=== PATIENT | male | born 1980 | race Caucasian/White ===

== ENCOUNTER 2022-01-07 23:49 | Emergency (ER) | payer MEDICAID ==
[~2022-01-07] VITALS: Ht 182.9 cm; Wt 86.3 kg
[~2022-01-07 23:49] MED LIST: IBUP-1984 PO
[2022-01-07 23:53] VITALS: BP 127/81
== END 2022-01-08 07:39 | disposition left against medical advice (07) ==
LOC: ER 23:50
DX: R10.9 Unspecified abdominal pain (principal); Z53.21 Procedure and treatment not carried out due to patient leaving prior to being seen by health care provider

== ENCOUNTER 2024-02-16 18:35 | Emergency (ER) | payer MEDICAID ==
[~2024-02-16] VITALS: Ht 182.9 cm; Wt 85.9 kg
[2024-02-16 18:35] VITALS: BP 120/79; PULSE 78; RESP 16; TEMP 99.1; O2SAT 96
[2024-02-16] MEDS ORDERED: SULF1TAB49 PO (19:35)
[2024-02-16] MEDS ORDERED: CEPH-585 PO (19:35)
== END 2024-02-16 19:49 | disposition home or self-care (01) ==
LOC: ER 18:35
DX: L02.212 Cutaneous abscess of back [any part, except buttock and flank] (principal); Z79.2 Long term (current) use of antibiotics
CPT/HCPCS: 99283

== ENCOUNTER 2025-02-07 08:30 | Emergency (ER) | payer MEDICAID ==
[~2025-02-07] VITALS: Ht 182.9 cm; Wt 89.0 kg
[~2025-02-07 08:30] MED LIST changes: +CEPH-585 PO
[2025-02-07 08:39] VITALS: BP 138/93; PULSE 90; RESP 18; O2SAT 96
[2025-02-07 09:29] LABS: STREP A SCREEN POSITIVE (Neg)
--- NOTE | 2025-02-07 10:00 | Physician Documentation ---
History of Present Illness ~ Chief Complaint: Sore Throat Stated Complaint: COLD SYMPTOMS Time Seen by MD: 08:52 Primary Medical Doctor: NONE HPI Patient is seen today with complaints of sore throat and fever and chills body aches for the last couple of days. Patient denies any cough or nasal congestion or chest pain or shortness of breath or abdominal pain or nausea, vomiting, diarrhea. Patient has no other concern or complaint at this time. He denies any other sick contacts at home. Medication Reconciliation Allergies: Coded Allergies: No Known Allergies (Unverified , 02/07/25) Scheduled Cephalexin*Monohydrate* (Keflex*), 1 CAP PO QID Ibuprofen* (Motrin*), Unknown Dose PO Q8H, (Reported) Past Medical History Past Medical History: No Pertinent History Past Surgical History: no surgical history Alcohol Use: Occasionally Drug Use: none Lives with: Other Lives In: Home Occupation: employed Review of Systems Constitutional: Denies: chills, fever, weakness Eyes: Denies: pain, blurred vision ENT: Denies: ear pain, nose pain, throat pain, mouth pain Respiratory: Denies: cough, shortness of breath Cardiovascular: Denies: chest pain, palpitations Gastrointestinal: Denies: abdominal pain, nausea, vomiting Genitourinary: Denies: burning, dysuria Male Genitalia: Denies: penile discharge, testicular pain Neurological: Denies: headache, dizziness Musculoskeletal: Denies: pain, swelling Integumentary: Denies: rash, lesions Allergic/Immunologic: Denies: hives, itching Hematologic/Lymphatic: Denies: no symptoms reported Psychiatric: Denies: depression, anxiety Physical Exam Vital Signs: Temperature: 98.5, Source: Temporal, Heart Rate: 90, Respiratory Rate: 18, BP: 138/93, Pulse Oximetry: 96, Weight: 89.000 Physical Exam General: Awake and Alert, no acute distress. HEENT: Patient on exam does have 2+ tonsils bilaterally that are erythematous with exudate. Patient has pain airway. Conjunctiva pink, Sclera clear, Mucus Membranes moist. Neck: Supple without masses and tenderness. Resp: Unlabored. Lungs clear to auscultation bilaterally. Heart: Regular Rate and rhythm, normal S1 and S2 without murmur, rub or gallop. Abdomen: Soft and non tender no organomegaly Extremities: No cyanosis,clubbing or edema. Skin: Warm and Dry. Progress Results/Orders Results/Orders Vital Signs 02/07/25 08:39 Temp 98.5 Pulse 90 Resp 18 B/P (MAP) 138/93 Pulse Ox 96 Laboratory Tests Test 02/07/25 09:09 Group A Streptococcus Rapid Positive H Medical Decision Making Findings Patient is seen today with complaints of sore throat and fever and chills body aches for the last couple of days. Patient denies any cough or nasal congestion or chest pain or shortness of breath or abdominal pain or nausea, vomiting, diarrhea. Patient has no other concern or complaint at this time. He denies any other sick contacts at home. Patient did have a positive rapid strep in the office today. Prescription of the amoxicillin 1000 mg by mouth given in the ED today. Prescription of amoxicillin 875 mg, one tab twice a day sent to patient's pharmacy to be taken for 10 days. Patient will return to ED with any worsening, concerning or changing symptoms. Follow up with primary care in 2-5 days if no better as needed sooner. Patient will be kept off work today and tomorrow. Departure Disposition: 01 HOME / SELF CARE / HOMELESS Impression: Primary Impression: Acute pharyngitis Qualified Codes: J02.0 - Streptococcal pharyngitis Condition: Stable Discharge Instructions: Sore Throat Additional Instructions: Patient did have a positive rapid strep in the office today. Prescription of the amoxicillin 1000 mg by mouth given in the ED today. Prescription of amoxicillin 875 mg, one tab twice a day sent to patient's pharmacy to be taken for 10 days. Patient will return to ED with any worsening, concerning or changing symptoms. Follow up with primary care in 2-5 days if no better as needed sooner. Patient will be kept off work today and tomorrow. Departure Forms: Excuse form Work or School Excused From: Work Excuse beginning now through the following date: Feb 08, 2025 Referrals: NO PRIMARY CARE PROVIDER (PCP) Prescriptions Amoxicillin Trihydrate (Amoxicillin) 875 Mg Tablet 1 TAB PO Q12H for 10 Days, #20 TAB Prov: JESSICA MARIN 02/07/25 Signature Scribe Signature: No scribe Attestation: No scribe JESSICA MARIN Feb 07, 2025 10:00
[2025-02-07] MEDS ORDERED: AMOX875T10 PO (10:02)
[2025-02-07] MEDS: amoxicillin 250mg capsule PO STA (10:09)
[2025-02-07 10:13] VITALS: TEMP 98.5
== END 2025-02-07 10:15 | disposition home or self-care (01) ==
LOC: ER 08:30
DX: J02.9 Acute pharyngitis, unspecified (principal); Z79.899 Other long term (current) drug therapy; Z72.89 Other problems related to lifestyle
CPT/HCPCS: 87880; 99283